=== PATIENT | male | born 1995 | race Caucasian/White ===

== ENCOUNTER 2025-06-27 21:37 | Emergency (ER) | payer SELFPAY ==
[2025-06-27 21:38] VITALS: BP 206/125
[2025-06-27 22:21] VITALS: BMI 40.2
[2025-06-27 22:28] VITALS: BP 171/95
[2025-06-27 23:00] VITALS: BP 153/96
--- NOTE | 2025-06-27 23:02 | ED.GENMED ---
History of Present Illness
General
Chief Complaint: Blood Pressure Problem
Source: patient
Exam Limitations: none
Time Seen by Provider: 06/27/25 23:01
Nursing documentation reviewed up to this point in time: agreed with
History of Present Illness
History of Present Illness:
29-year-old male with past medical history of hypertension on lisinopril who presents to the ER today with concerns of a 2-day history of headache and chest pain. Patient also reports experiencing tingling in both of his hands. Patient has never
experienced the numbness and tingling before. Patient reports that for his work he saw an occupational health doctor who prescribed him lisinopril but he has not been taking it for 2 weeks because he had trouble affording the prescription. He
reports that he is previously experiencing more headaches when his blood pressure has been high. He reports that the chest pain feels like intense acid reflux. Patient reports that he also was taking omeprazole by prescription that he also ran out
of. He tried famotidine which did not help. He reports that there is a family history of CAD on his dad side. Patient does vape daily. He is alcohol socially. He also states that he experiences vertigo and dizziness intermittently for which she
takes meclizine. Feels like it has not been worse today. He denies nausea, vomiting, abdominal pain, lightheadedness, fainting spells.
Review of Systems
Review of Systems
All Other Systems: ROS reviewed and negative except as documented in HPI and ROS
Phy Exam
Physical Exam
Physical Exam:
General: Patient is well appearing and in no acute distress; non-toxic
Skin: Warm and dry, no rashes or lesions
Head: Normocephalic, atraumatic
Eyes: Sclera non-icteric. EOMs intact.
Cardiac: Regular rate and rhythm, no murmurs, right external chest wall mildly tender to palpation
Peripheral Vascular: No lower extremity swelling or edema
Pulm: Normal respiratory effort, no wheezes, rales, rhonchi
Abdomen: No abdominal tenderness to palpation
Neuro: CN II-XII intact, no focal neurologic deficits. Normal finger-nose, [id number] testing. Normal gait. 5 out of 5 strength in bilateral upper and lower extremities.
Psychiatric: Appropriate mood and affect.
Scores
NIH Stroke Score
Level of Consciousness: 0 - Alert
LOC Questions: 0-Answers both correctly
LOC Commands: 0-Performs both correctly
Best Horizontal Gaze: 0-Normal
Visual Bonner: 0=Normal, no visual loss
Facial Palsy: 0=Normal, symmetrical
Motor - Right Arm: 0=No drift 10 seconds
Motor - Left Arm: 0=No drift 10 seconds
Motor - Right Le-No drift 5 seconds
Motor - Left Le-No drift 5 seconds
Limb Ataxia: 0-Absent
Sensation: 0-Normal
Best Language: 0-No aphasia
Dysarthria: 0-Normal
Extinction and Inattention: 0-No abnormality
NIH Total Score:: 0
Course
Orders/Labs/Results
Orders:
Orders
06/27/25 21:39
ECG [Electrocardiogram (*1)] Urgent
Reason for Study: Hypertension, Benign
EKG- Treatment ONCE
06/27/25 23:11
0.9% Sodium Chloride 500 ml [Nss] 500 ml IV BOLUS
Acetaminophen [Tylenol] 650 mg PO NOW STA
Mag Hydrox/Al Hydrox/Simeth [Maalox] 30 ml Phenobarb/Hyoscy/Atropine/Scop [] 10 ml Viscous Lidocaine 2% [Xylocaine Viscous Cup] 10 ml PO NOW
CR Chest - 2 Views Urgent
Comment:
Reason For Exam: right sided chest pain
06/27/25 23:17
Mag Hydrox/Al Hydrox/Simeth [Maalox] 30 ml .ROUTE .STK-MED ONE
Phenobarb/Hyoscy/Atropine/Scop [] 10 ml .ROUTE .STK-MED ONE
Viscous Lidocaine 2% [Xylocaine Viscous Cup] 15 ml .ROUTE .STK-MED ONE
06/27/25 23:43
Complete Blood Count/With Diff Urgent
Comprehensive Metabolic Panel Urgent
Troponin I Urgent
06/27/25 23:44
Lisinopril [Zestril] 20 mg PO NOW STA
06/28/25 00:47
CT Head W/o Iv Contrast Urgent
Reason For Exam: headache, htn, paresthesias
06/28/25 01:27
Electrocardiogram (*1) Urgent
Reason for Study: Chest Pain
06/28/25 02:21
Troponin I Urgent
06/28/25 08:00
Lisinopril [Zestril] 20 mg PO DAILY
Abnormal Lab Results
06/27/25
23:43
Absolute Monos (auto) 0.8 H 10^3/uL
(0.1-0.6)
Chloride 109 H mmol/L
(98-107)
ALT 84 H U/L
(0-50)
06/27/25 23:43
06/27/25 23:43
Vital Signs
Initial and Last Documented VS:
Initial Vital Signs
Temp Pulse Resp BP Pulse Ox
97.8 F 88 20 206/125 98
06/27/25 21:38 06/27/25 21:38 06/27/25 21:38 06/27/25 21:38 06/27/25 21:38
Last Documented Vital Signs
Temp Pulse Resp BP Pulse Ox
97.8 F 85 14 126/81 96
06/27/25 21:38 06/27/25 23:51 06/27/25 23:16 06/28/25 03:00 06/28/25 03:15
MDM/Problems Addressed
Differential Diagnosis Includes:
Differentials include essential hypertension, hypertensive headache, intracerebral hemorrhage, acute coronary syndrome, GERD, migraine
MDM/Problems Addressed:
29-year-old male presents emergency department today with concerns of high blood pressure. He has been out of his blood pressure medication for 2 weeks due to financial restraints. Patient reports that he has not been taking his blood pressure but
suspected it to be high due to his symptoms. Patient reports that the paresthesias in both of his hands were new as well as worsening chest pain what prompted him to come to the ER today. On physical exam he is well-appearing no acute distress.
Heart is regular rate and rhythm with no murmurs. His respirations are normal. He is a nonfocal neuroexam. Patient will go for CT scan to rule out intracerebral hemorrhage, will check CBC, CMP, troponin, ECG.
Labs reviewed, CBC unremarkable, CMP unremarkable. Troponin undetectable x 2. EKG shows normal sinus rhythm with no ischemic changes. Repeat EKG shows sinus bradycardia but still nonischemic. Patient reports that his pain is improving. Suspect
related to GERD/gastritis. We did give him his dose of his home blood pressure medication that he has not been taking. Patient feels well and ready for discharge. His headache and paresthesias are gone. Patient stable for discharge. Discussed
strict adherence to blood pressure medication and discussed follow-up with primary and establishing new primary care provider. Patient expressed understanding.
Chronic conditions affecting care:
Hypertension, vertigo
*Pulse Oximetry
SaO2: 99
Oxygen Mode of Delivery: Room air
Patient hypoxic: no
*EKG
Interpreted by ED Provider?: Yes
EKG Intrepretation Date: 06/27/25
Interpretation: normal
Comparison EKG: no comparison EKG present
Heart Rate: 77
Rate: normal
Rhythm: sinus
[place]: normal axis
Interval: normal interval
*Critical Care Note
Total Time (30-74mins, 75-104mins- exclusive of procedures): Not Applicable
Data Reviewed
Review of Other/Old Records Reveals: Records (No previous ER physician documentation or discharge summaries to review)
Update Note
Update Note:
1:28 am update, patient notes improvement in his symptoms. He states that the chest pain and headache is still present but is significantly improved from prior. Suspect pain related to GERD. Will repeat troponin and EKG
ED Attending Note
-
Portions of this chart may have been created with voice recognition software.� Occasional wrong word or��sound alike� substitutions may have occurred due to the inherent limitations of voice recognition software.
Discharge Plan
Departure
Patient Disposition: Home (Routine Discharge)
Date of Disposition: 06/28/25
Time of Disposition: 03:33
Patient with high blood pressure during this ER visit?: Yes
Condition: Good
Discharge Problem:
Hypertension, Acid reflux disease
Instructions: Acid reflux and GERD in adults, BLOOD PRESSURE
Prescriptions:
New
lisinopril 20 mg tablet
20 mg PO DAILY Qty: 30 0RF
omeprazole 20 mg capsule,delayed release(DR/EC)
20 mg PO DAILY Qty: 30 0RF
Referrals:
John Rob DO [[facility], Cardiology] - Call in 1-3 days for appt
Mook Holm DO [[facility], Family Practice] - Call in 1-3 days for appt
NONE,* [Family Provider, Internal Medicine]
Activity Restrictions/Additional Instructions:
Lisinopril refill has been sent to your pharmacy. Please restart taking this medication. Please take 1 tablet once daily. Refill of omeprazole is also been sent to your pharmacy.
Please continue to monitor your symptoms. Considering your family history, I recommend evaluation by cardiology. Please call the attached number to schedule follow-up appointment. Please establish care with a primary care provider.
PLEASE RETURN TO THE ER SHOULD YOU DEVELOP ANY ACUTE WORSENING OR RETURN OF YOUR SYMPTOMS, SHORTNESS OF BREATH, DIZZINESS, LIGHTHEADEDNESS, INTRACTABLE NAUSEA OR VOMITING, FAINTING SPELLS, OR ANY OTHER SIGNS OR SYMPTOMS WORRISOME TO YOU.
Interventions
Interventions:
*Risk Screen - Suicide Last Done: 06/27/25 21:38
*General Assessment Last Done: 06/27/25 22:21
*Neglect/Abuse Screening Last Done: 06/27/25 21:38
*ED- Fall Risk Assessment Last Done: 06/27/25 22:21
*ED COVID-19 Vaccine History Last Done: 06/27/25 22:21
*Nursing Disposition Last Done: 06/28/25 03:50
ED- Cardiac Assessment Last Done: 06/27/25 22:21
ED- Neurological Assessment Last Done: 06/27/25 22:32
ED- Pulmonary Assessment Last Done: 06/27/25 22:21
Discharge Date and Time
Discharge Date/Time: 06/28/25 03:51
Print Language: UPPER SORBIAN
[2025-06-27] MEDS: TYLENOL 650 MG PO (23:34)
[2025-06-27] MEDS: NSS 500 IV (23:44)
[2025-06-27] MEDS: MAALOX 50 PO (23:46)
[2025-06-27] MEDS: ZESTRIL 20 MG PO (23:51)
[2025-06-27 23:52] VITALS: BP 142/84
[2025-06-28] VITALS: BP 149/74
[2025-06-28 00:02] LABS: Hematocrit 43.7 % (39.0-52.0); Hemoglobin 15.4 g/dL (13.0-18.0); Mean Corp Hgb Conc. 35.2 g/dL (33.0-37.0); Mean Corpuscular Volume 81.1 fL (80.0-94.0); Nucleated Red Blood Cells % 0 % (-); Platelet Count 212 10^3/uL (130-400); Red Cell Dist. Width 12.5 % (11.5-14.5)
[2025-06-28 00:24] LABS: ALT (SGPT) 84 U/L (0-50); AST (SGOT) 39 U/L (17-59); Albumin 4.7 g/dl (3.5-5.0); Alkaline Phosphatase 57 U/L (38-126); Blood Urea Nitrogen 12 mg/dl (9-20); Calcium 9.6 mg/dl (8.4-10.2); Carbon Dioxide 27 mmol/L (22-30); Chloride 109 mmol/L (98-107); Estimated Creatinine Clearance > 125 ml/min; Glucose 89 mg/dl (70-99); Potassium 4.1 mmol/L (3.5-5.1); Sodium 141 mmol/L (135-145); Total Protein 7.6 g/dl (6.3-8.2); eGFR > 60.00
[2025-06-28 00:40] LABS: Troponin I < 0.012 ng/ml
[2025-06-28 01:00] VITALS: BP 149/75
[2025-06-28 02:00] VITALS: BP 127/70
[2025-06-28 03:00] VITALS: BP 126/81
[2025-06-28 03:13] LABS: Troponin I < 0.012 ng/ml
== END 2025-06-28 03:51 | disposition home or self-care (01) ==
LOC: EMR 21:37
PROVIDERS: Physician Assistant; EMERGENCY PHYSICIAN Emergency Medicine
DX: R07.89 Other chest pain (principal); R51.9 Headache, unspecified; R42 Dizziness and giddiness; R20.2 Paresthesia of skin; I10 Essential (primary) hypertension; K21.9 Gastro-esophageal reflux disease without esophagitis; Z91.120 Patient's intentional underdosing of medication regimen due to financial hardship; F17.290 Nicotine dependence, other tobacco product, uncomplicated; Z86.16 Personal history of COVID-19; Z82.49 Family history of ischemic heart disease and other diseases of the circulatory system
CPT/HCPCS: 99284; 96360; 70450; 71046; 80053; 84484; 85025; 93005